=== PATIENT | male | born 1995 | race African-American/Black ===

== ENCOUNTER 2025-08-02 08:47 | Emergency (ER) | payer MEDICAID, OTHER ==
[~2025-08-02] VITALS: Ht 182.9 cm; Wt 75.0 kg
[2025-08-02 08:57] VITALS: O2SAT 99
[2025-08-02 08:59] VITALS: BP 128/70; PULSE 77; RESP 14; TEMP 36.8; O2SAT 100
[2025-08-02] MEDS: CEFTRIAXONE SODIUM 500MG VIAL IM ONE (11:00)
[2025-08-02 11:01] LABS: CLARITY URINE CLEAR (CLEAR); COLOR URINE YELLOW (YELLOW); GLUCOSE URINE NEGATIVE (NEGATIVE); KETONES URINE NEGATIVE (NEGATIVE); NITRITE URINE NEGATIVE (NEGATIVE); OCCULT BLOOD URINE NEGATIVE (NEGATIVE); PH URINE 6.5 (4.5-8.0); PROTEIN URINE NEGATIVE (NEGATIVE); SPECIFIC GRAVITY URINE 1.025 (1.005-1.030); UROBILINOGEN URINE 1.0 E.U./dL (0.2-1.0)
[2025-08-02 11:02] LABS: LEUKOCYTE ESTERASE URINE TRACE (NEGATIVE)
[2025-08-02 11:06] LABS: MUCUS URINE TRACE /lpf (NONE/TRACE); SQUAMOUS EPITHELIAL CELL URINE NONE SEEN /lpf (RARE/1+)
[2025-08-02 11:08] LABS: BACTERIA URINE TRACE; RBC URINE NONE SEEN /hpf (0-2)
[2025-08-02] MEDS ORDERED: DOXY-461 MT (11:27)
[2025-08-02] MEDS ORDERED: SULF1TAB48 MT (11:27)
== END 2025-08-02 11:41 | disposition home or self-care (01) ==
LOC: ER 09:07
DX: R30.0 Dysuria (principal); Z20.2 Contact with and (suspected) exposure to infections with a predominantly sexual mode of transmission
CPT/HCPCS: 99283; 81003; 96372; J0696

== ENCOUNTER 2025-08-19 18:30 | Emergency (ER) | payer MEDICAID ==
[~2025-08-19] VITALS: Ht 177.8 cm; Wt 88.0 kg
[~2025-08-19 18:30] MED LIST: DOXY-461 MT; SULF1TAB48 MT
[2025-08-19 18:50] VITALS: O2SAT 100
[2025-08-19 19:17] LABS: BASOPHILS % 0.7 % (0.0-2.0); EOSINOPHILS % 4.7 % (0.0-5.0); HEMATOCRIT. 39.7 % (42.0-52.0); HEMOGLOBIN. 12.8 g/dL (14.0-18.0); LYMPHOCYTES % 39.0 % (20.0-50.0); MEAN PLATELET VOLUME 8.2 fl (7.4-10.4); MONOCYTES % 9.3 % (2.0-8.0); NEUTROPHILS % 46.3 % (40.0-76.0); PLATELET 195 x1000/uL (130-400); RED BLOOD CELL COUNT 4.70 mill/uL (4.7-6.1); RED CELL DISTRIBUTION WIDTH 13.1 % (11.6-14.6)
[2025-08-19 19:32] LABS: CREATININE 0.9 mg/dL (0.6-1.3); UREA NITROGEN BLOOD 9 mg/dL (9-23)
[2025-08-19 19:34] LABS: TROPONIN I HIGH SENSITIVITY < 4 ng/L (3.0-53)
[2025-08-19] MEDS: IBUPROFEN 600MG TABLET PO ONE (20:01)
[2025-08-19] MEDS: KETOROLAC 30MG/ML VIAL IM ONE (20:02)
[2025-08-19 21:23] VITALS: BP 113/66; PULSE 64; RESP 18; TEMP 37; O2SAT 99
== END 2025-08-19 21:25 | disposition home or self-care (01) ==
LOC: ER 18:30
DX: R07.89 Other chest pain (principal); Z98.890 Other specified postprocedural states
CPT/HCPCS: 99285; 71045; 80048; 85025; 84484; 36415; 73590; 93005; 96372; J1885

== ENCOUNTER 2025-08-23 08:44 | Emergency (ER) | payer MEDICAID ==
[~2025-08-23] VITALS: Ht 175.3 cm; Wt 63.0 kg
[2025-08-23 08:56] VITALS: BP 106/73; TEMP 37.2; O2SAT 100
[2025-08-23 09:01] VITALS: PULSE 90; RESP 14; O2SAT 99
[2025-08-23 10:27] LABS: CLARITY URINE CLEAR (CLEAR); COLOR URINE DARK YELLOW (YELLOW); GLUCOSE URINE NEGATIVE (NEGATIVE); KETONES URINE NEGATIVE (NEGATIVE); LEUKOCYTE ESTERASE URINE NEGATIVE (NEGATIVE); NITRITE URINE NEGATIVE (NEGATIVE); OCCULT BLOOD URINE NEGATIVE (NEGATIVE); PH URINE 6.0 (4.5-8.0); PROTEIN URINE NEGATIVE (NEGATIVE); SPECIFIC GRAVITY URINE 1.018 (1.005-1.030); UROBILINOGEN URINE 0.2 E.U./dL (0.2-1.0)
[2025-08-23] MEDS ORDERED: DOXY100T2 MT (11:52)
[2025-08-23] MEDS ORDERED: OFLO5DRO4 EACH EAR (11:53)
[2025-08-23] MEDS: CEFTRIAXONE SODIUM 500MG VIAL IM ONE (12:07)
[2025-08-25 19:06] LABS: CHLAMYDIA TRACHOMATIS NAA Negative (Negative); NEISSERIA GONORRHOEAE NAA Negative (Negative)
== END 2025-08-23 12:07 | disposition home or self-care (01) ==
LOC: ER 10:10
DX: R30.0 Dysuria (principal); Z79.899 Other long term (current) drug therapy
CPT/HCPCS: 81003; 87491; 87591; 99283

== ENCOUNTER 2025-09-03 15:32 | Emergency (ER) | payer MEDICAID ==
[~2025-09-03] VITALS: Ht 177.8 cm; Wt 61.0 kg
[~2025-09-03 15:32] MED LIST changes: +DOXY100T2 MT; +OFLO5DRO4 EACH EAR
[2025-09-03 15:34] VITALS: PULSE 95; RESP 16; O2SAT 99
[2025-09-03 15:38] VITALS: BP 121/77; TEMP 37; O2SAT 100
[2025-09-03] MEDS: CEFTRIAXONE SODIUM 500MG VIAL IM ONE (18:14)
[2025-09-03] MEDS ORDERED: DOXY100T2 MT (19:09)
[2025-09-06 13:08] LABS: CHLAMYDIA TRACHOMATIS NAA Negative (Negative); NEISSERIA GONORRHOEAE NAA Negative (Negative)
== END 2025-09-03 19:15 | disposition left against medical advice (07) ==
LOC: ER 15:32
DX: Z11.3 Encounter for screening for infections with a predominantly sexual mode of transmission (principal)
CPT/HCPCS: 99283; 87491; 87591; 96372; J0696